=== PATIENT | female | born 1995 | race Hispanic/Latino ===

== ENCOUNTER 2018-12-03 12:44 | Observation (INO) | payer MEDICAID ==
[~2018-12-03] VITALS: Ht 165.1 cm; Wt 62.6 kg
[2018-12-03 13:30] LABS: APPEARANCE,URINE Clear (CLEAR); BILIRUBIN,URINE Negative (NEGATIVE); COLOR,URINE Dark Yellow (YELLOW); GLUCOSE, URINE (UA) Negative (NEGATIVE); KETONES,URINE Trace mg/dL (NEGATIVE); LEUKOCYTE ESTERASE ,URINE Moderate (NEGATIVE); NITRATE,URINE Negative (NEGATIVE); OCCULT BLOOD,URINE Negative (NEGATIVE); PH,URINE 7.5 (5.0-8.0); PROTEIN,URINE POS 1+ mg/dL (NEGATIVE)
[2018-12-03 13:54] LABS: BACTERIA,URINE Few /HPF (None Seen); RBC,URINE 0-1 /HPF (0-1)
[2018-12-10] MEDS ORDERED: PREN-154 PO (05:52)
== END 2018-12-03 14:42 | disposition home or self-care (01) ==
LOC: LDH 12:44
PROVIDERS: ADMIT Specialist; ATTEND Specialist
DX: O62.9 Abnormality of forces of labor, unspecified (principal); Z88.8 Allergy status to other drugs, medicaments and biological substances; Z3A.38 38 weeks gestation of pregnancy
CPT/HCPCS: 81001; G0378 ×2

== ENCOUNTER → 2019-02-06 | Outpatient (CLI) | payer MEDICAID ==
[~2019-02-06] VITALS: Ht 163.8 cm; Wt 55.2 kg
[~2019-02-06] MED LIST: PREN-154 PO
[2019-02-06 13:12] LABS: BASOPHILS % (AUTO) 1.1 % (0.0-5.0); EOSINOPHILS % (AUTO) 4.1 % (0.0-8.0); HEMATOCRIT 34.5 % (36-48); MEAN CORPUSCULAR HEMOGLOBIN 26.4 pg (27.0-33.0); MEAN CORPUSCULAR HGB CONC 32.6 g/dL (32.0-36.0); MEAN CORPUSCULAR VOLUME 81.1 fL (79-99); MONOCYTES % (AUTO) 7.1 % (3.0-13.0); NEUTROPHILS % (AUTO) 62.7 % (40.0-77.0); PLATELET COUNT (AUTO) 259 K/uL (130-400); RED BLOOD CELL COUNT(AUTO) 4.25 MIL/uL (4.00-5.50); RED CELL DISTRIBUTION WIDTH 19.7 % (11.0-15.5); WHITE BLOOD COUNT (AUTO) 7.9 K/uL (4.8-10.8)
[2019-02-06 13:38] VITALS: BP 114/70
== END ==
LOC: EDSTATUS 08:00 → DAH 10:00
PROVIDERS: ATTEND Specialist
DX: Z01.818 Encounter for other preprocedural examination (principal); Z88.8 Allergy status to other drugs, medicaments and biological substances
CPT/HCPCS: 36415; 84703; 85025; 86850; 86900; 86901; A6260

== ENCOUNTER 2019-03-02 06:49 | Day surgery (SDC) | payer MEDICAID ==
[2019-03-02] VITALS (17 sets, daily range): BP systolic 102–119; BP diastolic 65–83
[~2019-03-02] VITALS: Ht 165.1 cm; Wt 53.5 kg
[2019-03-02 07:31] LABS: MEAN CORPUSCULAR VOLUME 81.8 fL (79-99); PLATELET COUNT (AUTO) 229 K/uL (130-400); RED BLOOD CELL COUNT(AUTO) 4.28 MIL/uL (4.00-5.50); RED CELL DISTRIBUTION WIDTH 18.8 % (11.0-15.5); WHITE BLOOD COUNT (AUTO) 7.4 K/uL (4.8-10.8)
[2019-03-02] MEDS ORDERED: LACTATED RINGERS 1000ML 1,000 ML IV ONE (07:41)
[2019-03-02] MEDS ORDERED: LIDOCAINE PF 2% 5ML ABBOJECT ONE (08:13)
[2019-03-02] MEDS ORDERED: DEXAMETHASONE SOD PHOSPHATE 10MG/ML 1ML VIAL ONE (08:13)
[2019-03-02] MEDS ORDERED: ONDANSETRON HCL 4 MG/2 ML VIAL ONE (08:14)
[2019-03-02] MEDS ORDERED: PROPOFOL 10 MG/ML 20ML VIAL IV ONE (08:14)
[2019-03-02] MEDS ORDERED: ROCURONIUM 10MG/1ML SYR 10 MG/ML ML ONE (08:14)
[2019-03-02] MEDS ORDERED: FENTANYL CITRATE PF 50 MCG/1 ML 2ML VIAL ONE (08:14)
[2019-03-02] MEDS ORDERED: MIDAZOLAM HCL 1 MG/ML 2ML VIAL ONE (08:14)
[2019-03-02] MEDS ORDERED: NEOSTIGMINE 5MG/5ML SYR IV ONE ×2 (08:49→08:50)
[2019-03-02] MEDS ORDERED: GLYCOPYRROLATE 1 MG/5 ML SYRINGE ONE (08:49)
[2019-03-02] MEDS ORDERED: MEPERIDINE-PF 25 MG/ML SYG ONE ×2 (09:11→09:19)
[2019-03-02] MEDS ORDERED: KETOROLAC TROMETHAMINE 30MG/ML ONE (09:28)
--- NOTE | 2019-03-02 10:05 | NUR ---
post received pt from [facility], s/p lap btl. bandaid x 2 to pubic area and umbilical area. bandaids dry and intact. pt awake and alert ,no distress noted. vs stable on arrival. pt denied any pain or discomforts. call light within reach, instructed patient to call nurse for any assitance need. pt verbalized understanding
--- NOTE | 2019-03-02 10:45 | NUR ---
dc pt dc home via [facility], no distress noted. pt denied any pain or discomforts. pt accompanied by family friend
== END 2019-03-02 10:45 | disposition home or self-care (01) ==
LOC: DAH 06:49
PROVIDERS: ATTEND Specialist
DX: Z30.2 Encounter for sterilization (principal); Z88.8 Allergy status to other drugs, medicaments and biological substances; Z88.2 Allergy status to sulfonamides; Z88.1 Allergy status to other antibiotic agents; Z87.891 Personal history of nicotine dependence
CPT/HCPCS: 36415; 58671; 84703; 85027; 86850; 86900; 86901; A4215 ×2; A4221; A4222; A4223; A4264; A4351; A4663; A4930; C1769 ×2; J1100; J1885; J2001; J2175 ×2; J2250; J2405; J2704; J2710 ×2; J3010; J3490; J7120 ×2